=== PATIENT | female | born 1975 | race Two or more races ===

== ENCOUNTER 2018-06-04 09:41 | Emergency (ER) | payer OTHER ==
[~2018-06-04] VITALS: Ht 157.5 cm; Wt 63.5 kg
== END 2018-06-04 14:35 | disposition home or self-care (01) ==
LOC: ER 09:41
DX: K52.9 Noninfective gastroenteritis and colitis, unspecified (principal)

== ENCOUNTER 2024-09-03 16:52 | Emergency (ER) | payer OTHER ==
[~2024-09-03] VITALS: Ht 157.5 cm; Wt 81.6 kg
[2024-09-03 17:12] VITALS: BP 142/90; O2SAT 97
[2024-09-03] MEDS ORDERED: KETOROLAC TROMETHAMINE 60 MG VIAL IM ONE (20:30)
[2024-09-03] MEDS ORDERED: DEXAMETHASONE SODIUM PHOSPHATE 4 MG/ML VIAL IM ONE (20:30)
== END 2024-09-03 20:59 | disposition home or self-care (01) ==
LOC: ER 16:54
DX: M25.561 Pain in right knee (principal); I10 Essential (primary) hypertension

== ENCOUNTER 2025-01-05 05:05 | Emergency (ER) | payer OTHER ==
[~2025-01-05] VITALS: Ht 157.5 cm; Wt 81.6 kg
[2025-01-05] MEDS ORDERED: METOCLOPRAMIDE HCL 5 MG/ML VIAL IM STA (06:33)
[2025-01-05] MEDS ORDERED: DIPHENOXYLATE HCL/ATROPINE 1 UDTAB TABLET PO STA (06:34)
[2025-01-05] MEDS ORDERED: 0.9 % SODIUM CHLORIDE 500 ML IV STA (06:35)
[2025-01-05] MEDS ORDERED: HYOSCYAMINE SULFATE 0.125 MG TAB.SUBL SL ONE (06:45)
[2025-01-05] MEDS ORDERED: HYOSCYAMINE SULFATE 0.125 MG TAB.SUBL ONE (07:15)
[2025-01-05] MEDS ORDERED: METOCLOPRAMIDE HCL 5 MG/ML VIAL ONE (07:15)
[2025-01-05] MEDS ORDERED: ONDANSETRON 4 MG TAB.RAPDIS PO ONE ×2 (11:45→11:55)
== END 2025-01-05 15:17 | disposition home or self-care (01) ==
LOC: ER
DX: K52.9 Noninfective gastroenteritis and colitis, unspecified (principal)